=== PATIENT | female | born 1955 | race Caucasian/White ===

== ENCOUNTER → 2017-01-16 | Outpatient (CLI) | payer BC ==
--- NOTE | 2017-01-17 14:08 | MM ---
Reason for exam: screening (asymptomatic). Last mammogram was performed 2 years and 6 months ago. History: Patient is postmenopausal and is nulliparous. Physical Findings: A clinical breast exam by your physician is recommended on an annual basis and results should be correlated with mammographic findings. MG 3D Screening Mammo W/Cad Bilateral CC and MLO view(s) were taken. Prior study comparison: July 07, 2014, bilateral MG screening mammo w CAD. March 07, 2009, bilateral digital screening mammogram. There are scattered fibroglandular densities. No significant changes when compared with prior studies. ASSESSMENT: Benign, BI-RAD 2 RECOMMENDATION: Routine screening mammogram of both breasts in 1 year.
== END | disposition home or self-care (01) ==
LOC: RADMAMWWP 09:33
PROVIDERS: ATTEND Family Medicine
DX: Z12.31 Encounter for screening mammogram for malignant neoplasm of breast (principal)
CPT/HCPCS: 77063; G0202

== ENCOUNTER → 2019-09-18 | Outpatient (CLI) | payer BC | END | disposition home or self-care (01) | LOC: LABWHC1 08:19 | PROVIDERS: ATTEND Family Medicine | DX: Z20.828 Contact with and (suspected) exposure to other viral communicable diseases (principal) | CPT/HCPCS: U0003; C9803 ==

== ENCOUNTER → 2023-07-03 | Outpatient (CLI) | payer MEDICARE, BC ==
--- NOTE | 2023-07-04 16:23 | MM ---
Reason for Exam: Screening (asymptomatic). Last mammogram was performed 6 year(s) and 6 month(s) ago. Patient History: Menarche at age 13. Patient has no children. Postmenopausal. Risk Values: Tere 5 year model risk: 1.9%. NCI Lifetime model risk: 6.7%. Prior Study Comparison: 03/07/2009 Bilateral Screening Mammogram, [facility]. 07/07/2014 Bilateral Screening Mammogram, [facility]. 01/16/2017 Bilateral Screening Mammogram, [facility]. Tissue Density: There are scattered areas of fibroglandular density. Findings: Analyzed By CAD. The pattern is symmetrical. Pattern appears stable. Focal asymmetries within the right breast, stable. No suspicious groups of microcalcifications, spiculated or lobular masses, architectural distortion or other secondary signs of malignancy are mammographically apparent. Overall Assessment: Benign, BI-RAD 2 Management: Screening Mammogram of both breasts in 1 year. A negative mammogram report should not preclude additional follow up of suspicious palpable abnormalities. Patient should continue monthly self breast exam. A clinical breast exam by your physician is recommended on an annual basis and results should be correlated with mammographic findings. Note on Tere scores and lifetime risk: 1. A Tere score greater than 3% is considered moderate risk. If this is the case, consider specialist referral to assess eligibility for a risk reducing agent. 2. If overall lifetime risk for the development of breast cancer is 20% or higher, the patient may qualify for future screening with alternating mammogram and breast MRI. Electronically signed and approved by: Regis Kennedy D.O. Radiologis
== END | disposition home or self-care (01) ==
LOC: RADMAMWWP 09:17
PROVIDERS: ATTEND Family Medicine
DX: Z12.31 Encounter for screening mammogram for malignant neoplasm of breast (principal); Z78.0 Asymptomatic menopausal state
CPT/HCPCS: 77063; 77067

== ENCOUNTER 2023-11-29 11:06 | Day surgery (SDC) | payer MEDICARE, BC ==
[2023-11-29 12:14] VITALS: TEMP 97
[2023-11-29] MEDS: LIDOCAINE 1% (10MG/ML) FOR IV START INTRADERMA PRN (12:15)
[2023-11-29] MEDS: IV FLUID CONTINUATION 1,000 ML IV ONE (12:15)
[2023-11-29] MEDS: LACTATED RINGERS 1,000 ML IV SCH (12:15)
[2023-11-29] MEDS ORDERED: GLYCOPYRROLATE 0.2 MG/ML 2 ML VIAL ONE (12:54)
[2023-11-29] MEDS ORDERED: PROPOFOL 10 MG/ML 20 ML VIAL IV ONE (12:54)
--- NOTE | 2023-11-29 13:14 | P.PCN ---
Date of Procedure: 11/29/23 Procedure(s) Performed: BRIEF HISTORY: Patient is a 68-year-old pleasant white female scheduled for an elective colonoscopy as a part of screening for colon cancer. PROCEDURE PERFORMED: Colonoscopy with snare polypectomy. PREOPERATIVE DIAGNOSIS: Screening for colon cancer. IV sedation per Anesthesia. PROCEDURE: After informed consent was obtained, the patient, was brought into the endoscopy unit. IV sedation was administered by Anesthesia under continuous monitoring. Digital rectal examination was normal. Initially the Olympus CF-160 flexible video colonoscope was then inserted in the rectum, gradually advanced into the cecum without any difficulty. Careful examination was performed as the scope was gradually being withdrawn. Ileocecal valve and the appendiceal orifice were visualized and appeared normal. Prep was excellent. Mucosa of the cecum, 1 cm flat polyp that was removed by cold snare polypectomy. Rest of the ascending colon, transverse colon, descending colon, sigmoid colon, and rectum appeared normal. Scattered sigmoid diverticulosis. Retroflexion was performed in the re ctum and no lesions were seen. The patient tolerated the procedure well. IMPRESSION: 1 cm flat cecal polyp status post cold snare polypectomy Scattered sigmoid diverticulosis RECOMMENDATIONS: Findings of this examination were discussed with the patient as well as her family.. She was advised to follow-up with the biopsy results. If the biopsy reveals adenoma she can have repeat colonoscopy in 3 years.
[2023-11-29 13:35] VITALS: BP 145/79; PULSE 79; RESP 16
== END 2023-11-29 14:04 | disposition home or self-care (01) ==
LOC: ORWHC2ENDO 11:06
PROVIDERS: ATTEND Internal Medicine Gastroenterology
DX: Z12.11 Encounter for screening for malignant neoplasm of colon
CPT/HCPCS: 45385; 88305

== ENCOUNTER → 2024-09-08 | Outpatient (CLI) | payer MEDICARE ==
--- NOTE | 2024-09-08 10:08 | MM ---
Reason for Exam: Screening (asymptomatic). Last mammogram was performed 1 year(s) and 2 month(s) ago. Patient History: Menarche at age 13. Patient has no children. Postmenopausal. Risk Values: Tere 5 year model risk: 1.9%. NCI Lifetime model risk: 6.4%. Prior Study Comparison: 07/07/2014 Bilateral Screening Mammogram, [facility]. 01/16/2017 Bilateral Screening Mammogram, [facility]. 07/03/2023 Bilateral MG 3D screening mammo w/cad, [facility]. Tissue Density: There are scattered areas of fibroglandular density. Findings: Analyzed By CAD. Stable sub-5 mm circumscribed round masses bilaterally. There is no suspicious new group of microcalcifications or new suspicious mass in either breast. Overall Assessment: Negative, BI-RAD 1 Management: Screening Mammogram of both breasts in 1 year. . Patient should continue monthly self-breast exams. A clinical breast exam by your physician is recommended on an annual basis. This exam should not preclude additional follow-up of suspicious palpable abnormalities. Note on Tere scores and lifetime risk: 1. A Tere score greater than 3% is considered moderate risk. If this is the case, consider specialist referral to assess eligibility for a risk reducing agent. 2. If overall lifetime risk for the development of breast cancer is 20% or higher, the patient may qualify for future screening with alternating mammogram and breast MRI. [facility], , 09/08/2024 10:05 AM. Electronically signed and approved by: Morgan Gallo M.D.
== END | disposition home or self-care (01) ==
LOC: RADMAMWWP 09:25
PROVIDERS: ATTEND Family Medicine
DX: Z12.31 Encounter for screening mammogram for malignant neoplasm of breast (principal); R92.323 Mammographic fibroglandular density, bilateral breasts; Z78.0 Asymptomatic menopausal state
CPT/HCPCS: 77063; 77067